=== PATIENT | female | born 1945 | race Caucasian/White ===

== ENCOUNTER 2017-05-12 10:01 | Outpatient (CLI) | payer OTHER | END 2017-05-12 17:16 | disposition home or self-care (01) | LOC: SMA 10:01 | PROVIDERS: ATTEND Internal Medicine | DX: Z12.31 Encounter for screening mammogram for malignant neoplasm of breast (principal) | CPT/HCPCS: G0202 ==

== ENCOUNTER 2018-08-25 09:40 | Outpatient (CLI) | payer OTHER | END 2018-08-25 19:13 | disposition home or self-care (01) | LOC: SMA 09:40 | PROVIDERS: ATTEND Internal Medicine | DX: Z12.31 Encounter for screening mammogram for malignant neoplasm of breast (principal) | CPT/HCPCS: 77067 ==

== ENCOUNTER 2020-04-26 09:02 | Outpatient (CLI) | payer OTHER | END 2020-04-26 20:35 | disposition home or self-care (01) | LOC: SMA 09:02 | PROVIDERS: ATTEND Internal Medicine | DX: Z12.31 Encounter for screening mammogram for malignant neoplasm of breast (principal) | CPT/HCPCS: 77067 ==